=== PATIENT | female | born 1975 | race Hispanic/Latino ===

== ENCOUNTER 2017-11-26 04:34 | Emergency (ER) | payer OTHER | END 2017-11-26 04:59 | disposition home or self-care (01) | LOC: EDH 04:34 | DX: E11.40 Type 2 diabetes mellitus with diabetic neuropathy, unspecified (principal); Z72.0 Tobacco use; Z91.040 Latex allergy status ==

== ENCOUNTER 2018-09-30 21:21 | Emergency (ER) | payer OTHER ==
[2018-09-30] MEDS ORDERED: KETOROLAC TROMETHAMINE 60 MG/2 ML VIAL ONE (22:00)
[2018-09-30] MEDS ORDERED: HYDROCODONE/ACETAMINOPHEN 5/325 MG TAB ONE (22:01)
== END 2018-09-30 23:24 | disposition home or self-care (01) ==
LOC: EDH 21:21
DX: G89.18 Other acute postprocedural pain (principal); K08.89 Other specified disorders of teeth and supporting structures; E11.9 Type 2 diabetes mellitus without complications; Z90.710 Acquired absence of both cervix and uterus; Z98.890 Other specified postprocedural states; Z87.891 Personal history of nicotine dependence; Z91.040 Latex allergy status
CPT/HCPCS: 96372; 99283; J1885